=== PATIENT | male | born 1950 | race Caucasian/White ===

== ENCOUNTER → 2019-02-20 15:57 | Outpatient (CLI) | payer OTHER, SELFPAY ==
[2019-02-20 17:09] LABS: Aspartate Aminotransferase 30 IU/L (17-59); BUN Creatinine Ratio 25.6 (6-22); Blood Urea Nitrogen 23 mg/dL (9-20); Calcium 9.3 mg/dL (8.4-10.2); Carbon Dioxide 23 mmol/L (22-32); Chloride 104 mmol/L (98-107); Cholesterol 138 mg/dL (140-199); Estimated Glomerular Filt Rate > 60.0 mL/min (>60); Glucose 95 mg/dL (80-110); HDL Cholesterol 58 mg/dL (40-60); HEMOLYSIS < 15 (0-50); LDL Cholesterol Calculated 24 mg/dL (<100); Potassium 4.8 mmol/L (3.4-5.1); Sodium 139 mmol/L (137-145); Triglycerides 280 mg/dL (35-150)
[2019-02-20 17:39] LABS: Prostate Specific Antigen 2.04 ng/mL (0.10-4.00)
== END ==
PROVIDERS: PCP Internal Medicine; Visit Provider Internal Medicine
DX: M10.9 Gout, unspecified (principal); I10 Essential (primary) hypertension; N40.0 Benign prostatic hyperplasia without lower urinary tract symptoms; E78.2 Mixed hyperlipidemia
CPT/HCPCS: 36415; 80048; 80061; 84153; 84450

== ENCOUNTER 2019-05-10 11:38 | Emergency (ER) | payer OTHER, SELFPAY ==
[2019-05-10 11:39] VITALS: BP 165/103; PULSE 82; RESP 22; TEMP 36.6; O2SAT 99; BMI 44.6
--- NOTE | 2019-05-10 11:48 | PC.NURSE ---
Pt states on thanksgiving he was trying to get down on his knees, and he has a bad knee so he placed all his weight onto his L wrist. appears swollen and pt is c/o increased pain. 2+ pulse. pain radiates into elbow.
--- NOTE | 2019-05-10 11:49 | DI.RAD.S_ITS ---
PROCEDURE: XR HAND LT MIN 3V INDICATIONS: pain sp foosh TECHNIQUE: 3 views of the hand(s) acquired. COMPARISON: None. 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 No acute fracture or dislocation. There is interphalangeal joint space narrowing. Non-unified, chronic appearing fractures versus accessory ossicles are noted at the posterior radiocarpal joint. Soft tissues: No suspicious soft tissue calcifications. IMPRESSION: Degenerative change. No acute radiographic findings. If pain persists, followup imaging in 5-7 days is recommended to exclude occult fracture. Dictated by: Ana Frey M.D. on 05/10/2019 at 11:40 Approved by: Ana Frey M.D. on 05/10/2019 at 11:41
--- NOTE | 2019-05-10 11:49 | DI.RAD.S_ITS ---
PROCEDURE: XR WRIST LT MIN 3V INDICATIONS: pain sp FOOSH TECHNIQUE: 4 views of the wrist were acquired. COMPARISON: None. FINDINGS: Bones: No acute fracture or dislocation. Severe degenerative changes are present at the triscaphe joint. Corticated bone fragments are present at the posterior radiocarpal joint suggesting prior non-unified fractures or accessory ossicles. Scaphoid view: The scaphoid is intact. Soft tissues: No suspicious soft tissue calcifications. IMPRESSION: Degenerative changes. No acute radiographic findings. If pain persists, followup imaging in 5-7 days is recommended to exclude occult fracture. Dictated by: Ana Frey M.D. on 05/10/2019 at 11:38 Approved by: Ana Frey M.D. on 05/10/2019 at 11:40
--- NOTE | 2019-05-10 11:57 | ED.UPPEXIN ---
HPI - Extremity Injury (Upper) <IBETH Harrison - Last Filed: 05/10/19 14:05> General Chief Complaint: Extremity Injury, Upper Stated Complaint: WRIST INJURY Time Seen by Provider: 05/10/19 11:40 Source: patient Mode of arrival: Ambulatory Limitations: no limitations History of Present Illness HPI narrative: The patient is a 68-year-old male nonsmoker who drinks 6 beers a day in the evenings who presents with a chief complaint of left wrist pain. He states that he was using his hand in an outstretched position to support his weight while getting on the ground and felt something twinge or too weak. He took Vicodin for the pain last night. He has not applied ice. Yesterday started noticed swelling in the area. He denies any previous injuries to the wrist. He states he has a reduced range of motion over his wrist and hand. He denies any abrasions or lacerations. Related Data Home Medications Medication Instructions Recorded Confirmed ALLOPURINOL 0 PO *UK DOSE/FREQUENCY #0 12/30/07 Allergies Allergy/AdvReac Type Severity Reaction Status Date / Time No Known Drug Allergies Allergy Verified 05/10/19 11:50 Review of Systems <IBETH Harrison - Last Filed: 05/10/19 14:05> Review of Systems Narrative: GENERAL: Denies chills, fatigue, malaise, fever, sweats. HEENT: Denies sinus pain, ear pain, sore throat, difficulty swallowing, dizziness. RESPIRATORY: Denies dyspnea, cough, wheezing, hemoptysis, sputum. CARDIOVASCULAR: Denies chest pain, palpitations, orthopnea, edema, GASTROINTESTINAL: Denies nausea, vomiting, abdominal pain, diarrhea, constipation, melena. : Denies dysuria, frequency, incontinence, hematuria, urinary retention. MUSCULOSKELETAL: See HPI SKIN: Denies rash, skin lesions, or other NEUROLOGIC: Denies weakness, headache, numbness, change in speech, confusion, seizures, incoordination. PSYCHIATRIC: No concerning psychosocial issues. 12 point review of systems is negative except for those stated above Patient History <GRETA Harrison - Last Filed: 05/10/19 14:05> Social History Smoking Status: Never smoker alcohol intake frequency: 3 or more drinks per day Alcohol type: beer Substance Use Type: marijuana Exam <GRETA Harrison - Last Filed: 05/10/19 14:05> Narrative Exam Narrative: GENERAL: This is a well-nourished, well-developed patient, in no acute distress HEAD: Atraumatic. Normocephalic. No temporal or scalp tenderness. EYES: Pupils equal round and reactive. Extraocular motions intact. No scleral icterus. No injection or drainage. ENT: Nose without bleeding, purulent drainage or septal hematoma. Throat without erythema, tonsillar hypertrophy or exudate. Uvula midline. Airway patent. NECK: Trachea midline. No JVD or lymphadenopathy. Supple, nontender, no meningeal signs. CARDIOVASCULAR: Regular rate and rhythm RESPIRATORY: No cough. No increased respiratory effort. No accessory muscle use. EXTREMITIES: General pain to palpation noted left wrist and hand. Decreased range of motion left wrist flexion and extension. Swelling noted. Patient has decreased range of motion left hand, unable to make fist due to pain in wrist. No snuffbox tenderness to palpation. BACK: Nontender without deformity or crepitance. No flank tenderness. NEURO: AOx3. Interactive. Stable gait. SKIN: No rash or erythema on visible skin. No erythema or warmth laceration or abrasion noted left wrist. Initial Vital Signs Initial Vital Signs: Vital Signs Temperature 97.8 F 05/10/19 11:39 Pulse Rate 82 05/10/19 11:39 Respiratory Rate 22 05/10/19 11:39 Blood Pressure 165/103 H 05/10/19 11:39 Pulse Oximetry 99 05/10/19 11:39 <Amanda Jon DO - Last Filed: 05/10/19 18:47> Initial Vital Signs Initial Vital Signs: Vital Signs Temperature 97.8 F 05/10/19 11:39 Pulse Rate 82 05/10/19 11:39 Respiratory Rate 22 05/10/19 11:39 Blood Pressure 165/103 H 05/10/19 11:39 Pulse Oximetry 99 05/10/19 11:39 Course <GRETA Harrison - Last Filed: 05/10/19 14:05> Orders Ordered: ED Orders 05/10/19 11:49 XR hand LT min 3V Stat XR wrist LT min 3V Stat Vital Signs Vital signs: Vital Signs - 8 hr 05/10/19 11:39 Temperature 97.8 F Pulse Rate 82 Respiratory Rate 22 Blood Pressure 165/103 H Pulse Oximetry 99 <Amanda Jon DO - Last Filed: 05/10/19 18:47> Orders Ordered: ED Orders 05/10/19 11:49 XR hand LT min 3V Stat XR wrist LT min 3V Stat Vital Signs Vital signs: Vital Signs - 8 hr 05/10/19 11:39 Temperature 97.8 F Pulse Rate 82 Respiratory Rate 22 Blood Pressure 165/103 H Pulse Oximetry 99 MDM - Extremity Injury (Upper) <GRETA Harrison - Last Filed: 05/10/19 14:05> Imaging Data Wrist x-ray: Radiologist's impression: [address] [address] XRay Report Signed Patient: All Hathaway GMR#: [id number] : 1950cct:[id number] Age/Sex: 68 / MDate of Service: 05/10/19 Loc: ED Accession Number: [id number] Procedure: XR wrist LT min 3V Ordering Provider: Dayana Torres PROCEDURE: XR WRIST LT MIN 3V INDICATIONS: pain sp FOOSH TECHNIQUE: 4 views of the wrist were acquired. COMPARISON: None. FINDINGS: Bones: No acute fracture or dislocation. Severe degenerative changes are present at the triscaphe joint. Corticated bone fragments are present at the posterior radiocarpal joint suggesting prior non-unified fractures or accessory ossicles. Scaphoid view: The scaphoid is intact. Soft tissues: No suspicious soft tissue calcifications. IMPRESSION: Degenerative changes. No acute radiographic findings. If pain persists, followup imaging in 5-7 days is recommended to exclude occult fracture. Dictated by: Ana Frey M.D. on 05/10/2019 at 11:38 Approved by: Ana Frey M.D. on 05/10/2019 at 11:40 Hand x-ray: Radiologist's impression: All Hathaway Janell 68 M [address] [address] XRay Report Signed Patient: All Hathaway GMR#: [id number] : 3Acct:[id number] Age/Sex: 68 / MDate of Service: 05/10/19 Loc: ED Accession Number: [id number] Procedure: XR hand LT min 3V Ordering Provider: Dayana Torres PROCEDURE: XR HAND LT MIN 3V INDICATIONS: pain sp foosh TECHNIQUE: 3 views of the hand(s) acquired. COMPARISON: None. 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 No acute fracture or dislocation. There is interphalangeal joint space narrowing. Non-unified, chronic appearing fractures versus accessory ossicles are noted at the posterior radiocarpal joint. Soft tissues: No suspicious soft tissue calcifications. IMPRESSION: Degenerative change. No acute radiographic findings. If pain persists, followup imaging in 5-7 days is recommended to exclude occult fracture. Dictated by: Ana Frey M.D. on 05/10/2019 at 11:40 Approved by: Ana Frey M.D. on 05/10/2019 at 11:41 MDM Narrative Medical decision making narrative: The patient is a 68-year-old male who presents with a chief complaint of wrist pain after twisting and setting himself down on his rest on . He states it has been worsening. X-ray showed no acute fracture. He does have history of gout, but there is no erythema or warmth and there is an impetus injury. We discussed the possibility of DVT, but there is no erythema, warmth and there is an impetus and drained making it less likely. Encouraged rest ice compression elevation as well as [id number] pain medications as needed and able. I am hesitant to do narcotic prescription for the patient as he drinks a 6 pack of beer every night. Discussed monitoring for signs and symptoms of infection such as redness, fever and come back to emergency department for any acute concerns such as chest pain and shortness of breath. Encouraged follow-up with primary care provider. Patient has no questions or concerns upon discharge and states understanding of return precautions as well as follow-up care. Discharge Plan Departure Patient Disposition: Home Clinical Impression: Sprain and strain of wrist Acute wrist pain Qualifiers: Laterality: left Qualified Code(s): M25.532 - Pain in left wrist Discharge Date/Time: 05/10/19 13:10 Instructions: DI for Wrist Sprain, How To Perform RICE (Rest, Ice, Compress, Elevate), DI for Wrist Pain Activity Restrictions/Additional Instructions: As I discussed, your x-ray shows no acute fracture. This does not rule out a soft tissue injury such as a ligament or tendon injury. It is important that you follow up with primary care provider, especially if worsening or no improvement. There can be fractures that did not show up on initial x-ray. Please use rest ice compression elevation as well as [id number] pain medications as needed and able. Please follow up with primary care provider in the next few days. Please come back to the emergency department for any acute concerns such as chest pain, shortness of breath, and inability to keep down fluids Prescriptions: No Action ALLOPURINOL 0 PO *UK DOSE/FREQUENCY Qty: 0 RF: 0 Referrals: Bolivar Varela MD [Primary Care Provider] -
== END 2019-05-10 13:10 | disposition home or self-care (01) ==
PROVIDERS: Emergency Provider Nurse Practitioner Family; PCP Internal Medicine
DX: S63.502A Unspecified sprain of left wrist, initial encounter (principal); S66.912A Strain of unspecified muscle, fascia and tendon at wrist and hand level, left hand, initial encounter; M25.532 Pain in left wrist
CPT/HCPCS: 73110; 73130; 99282; 99283

== ENCOUNTER → 2019-07-04 14:25 | Outpatient (CLI) | payer OTHER, SELFPAY ==
--- NOTE | 2019-07-04 | DI.MRI.S_ITS ---
PROCEDURE: MR WRIST LT WO CON INDICATIONS: Pain in left wrist TECHNIQUE: Noncontrast coronal proton density fast spin echo and T2 fast spin echo with fat saturation; coronal 3-D gradient echo, axial T1 spin echo and T2 fast spin echo with fat saturation, sagittal T1 spin echo through the wrist. COMPARISON: [facility], CR, XR WRIST LT MIN 3V, 05/10/2019, 12:12. FINDINGS: Image quality: Excellent. Bones and cartilage: The carpal bones are normally aligned. No bone marrow contusions or fractures. No evidence for avascular necrosis. There are subtle sub-5 mm marrow signal changes on T1 weighted images involving the triquetral, scaphoid, hamate and lunate which statistically represent small degenerative cysts although cannot entirely exclude early erosions Carpal ligaments: Thickened appearance of the ulnotriquetral ligament, and ulnar joint capsule, with T2 hyperintensity suggestive of sprain. The scapholunate ligament not well seen although no definite scapholunate interval widening. The lunotriquetral ligament appears grossly intact. In the absence of intra-articular contrast, the extrinsic carpal ligaments are not well identified. On sagittal images, the pisohamate ligament appears intact. Triangular fibrocartilage complex: Intrasubstance signal changes and irregularity involving the central disc and radial attachment of the TFCC suggesting program probably chronic) tear. There is ulnocarpal and radiocarpal diffuse partial thickness chondral loss. The adjacent meniscal homolog not well seen, with frayed appearance. The extensor carpi ulnaris tendon is normal in location and morphology. Tendons and soft tissues: The carpal tunnel structures appear normal, including the median nerve. The ulnar nerve appears normal within Guyon's canal. All six extensor tendon compartments demonstrate normal morphology, without pathologic tendon sheath fluid. No soft tissue ganglion cysts. 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 This finding technically age-indeterminate. Scapholunate ligament not well visualized and possibly ruptured, although no definite scapholunate interval widening. Dictated by: Olayinka Lazo M.D. on 07/06/2019 at 10:12 Approved by: Olayinka Lazo M.D. on 07/06/2019 at 10:26
== END ==
PROVIDERS: PCP Internal Medicine; Visit Provider Internal Medicine
DX: S63.592A Other specified sprain of left wrist, initial encounter (principal); M25.532 Pain in left wrist
CPT/HCPCS: 73221

== ENCOUNTER → 2020-03-02 18:26 | Outpatient (ROUT) | payer OTHER, SELFPAY ==
[2020-03-02 18:58] LABS: Hematocrit 37.6 % (41-53); Hemoglobin 12.8 g/dL (13.5-17.5); Mean Corpuscular HGB Conc 33.9 % (30-36); Mean Corpuscular Hemoglobin 35.5 PG (26-34); Mean Corpuscular Volume 104.6 fL (80-100); Platelet Count 313 X10^3/uL (150-400); White Blood Cell Count 7.5 X10^3/uL (4.5-11.0)
[2020-03-02 19:20] LABS: Alanine Aminotransferase 28 IU/L (<50); Albumin 3.4 g/dL (3.5-5.0); Albumin Globulin Ratio 1.1 (1.0-2.8); Alkaline Phosphatase 75 U/L (38-126); Aspartate Aminotransferase 44 IU/L (17-59); BUN Creatinine Ratio 19.8 (6-22); Bilirubin Total 0.6 mg/dL (0.2-1.3); Blood Urea Nitrogen 22 mg/dL (9-20); Calcium 8.3 mg/dL (8.4-10.2); Carbon Dioxide 24 mmol/L (22-32); Chloride 103 mmol/L (98-107); Cholesterol 98 mg/dL (140-199); Estimated Glomerular Filt Rate > 60.0 mL/min (>60); Globulin 3.1 g/dL (1.7-4.1); Glucose 97 mg/dL (80-110); HDL Cholesterol 60 mg/dL (40-60); HEMOLYSIS < 15 (0-50); LDL Cholesterol Calculated 8 mg/dL (<100); Potassium 4.3 mmol/L (3.4-5.1); Sodium 135 mmol/L (137-145); Total Protein 6.5 g/dL (6.3-8.2); Triglycerides 148 mg/dL (35-150)
[2020-03-02 19:51] LABS: TSH w/ Reflex to FT4 1.78 uIU/mL (0.47-4.68)
== END ==
PROVIDERS: PCP Internal Medicine; Visit Provider Internal Medicine
DX: I10 Essential (primary) hypertension (principal); E78.2 Mixed hyperlipidemia; N40.0 Benign prostatic hyperplasia without lower urinary tract symptoms
CPT/HCPCS: 80053; 80061; 84153; 84443; 85027

== ENCOUNTER → 2020-05-20 19:25 | Outpatient (ROUT) | payer OTHER, SELFPAY ==
[2020-05-20 19:42] LABS: Add Manual Diff / Slide Review NO; Basophils Absolute Auto 100 /uL (0-100); Basophils Percent Auto 0.8 % (0-2); Eosinophils Absolute Auto 200 /uL (0-450); Eosinophils Percent Auto 2.4 % (2-4); Hematocrit 37.9 % (41-53); Hemoglobin 12.8 g/dL (13.5-17.5); Lymphocytes Absolute Auto 1400 /uL (1100-4500); Lymphocytes Percent Auto 17.6 % (25-40); Mean Corpuscular HGB Conc 33.8 % (30-36); Mean Corpuscular Hemoglobin 32.9 PG (26-34); Mean Corpuscular Volume 97.2 fL (80-100); Monocytes Absolute Auto 600 /uL (0-900); Monocytes Percent Auto 7.1 % (3-14); Neutrophils Absolute Auto 5800 /uL (1500-7000); Neutrophils Percent Auto 72.1 % (50-75); Platelet Count 446 X10^3/uL (150-400); Red Cell Distribution Width 13.1 % (11.6-14.8)
[2020-05-20 19:49] LABS: BUN Creatinine Ratio 18.6 (6-22); Blood Urea Nitrogen 18 mg/dL (9-20); Calcium 9.2 mg/dL (8.4-10.2); Carbon Dioxide 30 mmol/L (22-32); Chloride 101 mmol/L (98-107); Estimated Glomerular Filt Rate > 60.0 mL/min (>60); Glucose 109 mg/dL (80-110); HEMOLYSIS < 15 (0-50); Sodium 136 mmol/L (137-145)
== END ==
PROVIDERS: PCP Internal Medicine; Visit Provider Internal Medicine
DX: M10.9 Gout, unspecified (principal)
CPT/HCPCS: 80048; 84550; 85025

== ENCOUNTER → 2021-03-03 13:12 | Outpatient (CLI) | payer OTHER, SELFPAY ==
[2021-03-03 14:47] LABS: Uric Acid 5.5 mg/dL (3.5-8.5)
[2021-03-03 15:32] LABS: Aspartate Aminotransferase 22 IU/L (17-59); BUN Creatinine Ratio 20.9 (6-22); Blood Urea Nitrogen 19 mg/dL (9-20); Calcium 9.6 mg/dL (8.4-10.2); Carbon Dioxide 27 mmol/L (22-32); Chloride 104 mmol/L (98-107); Cholesterol 145 mg/dL (140-199); Estimated Glomerular Filt Rate > 60.0 mL/min (>60); Glucose 165 mg/dL (80-110); HDL Cholesterol 50 mg/dL (40-60); HEMOLYSIS < 15 (0-50); LDL Cholesterol Calculated 62 mg/dL (<100); Potassium 4.6 mmol/L (3.4-5.1); Sodium 138 mmol/L (137-145); Triglycerides 164 mg/dL (35-150)
[2021-03-06 16:48] LABS: Hep C Virus Ab w/Reflex Quant NEGATIVE s/c (NEGATIVE)
== END ==
PROVIDERS: PCP Internal Medicine; Referring Provider Internal Medicine; Visit Provider Internal Medicine
DX: Z11.59 Encounter for screening for other viral diseases (principal); N40.0 Benign prostatic hyperplasia without lower urinary tract symptoms; M1A.9XX0 Chronic gout, unspecified, without tophus (tophi); E78.2 Mixed hyperlipidemia; I10 Essential (primary) hypertension
CPT/HCPCS: 36415; 80048; 80061; 84153; 84450; 84550; 86803

== ENCOUNTER → 2021-06-20 13:13 | Outpatient (CLI) | payer OTHER, SELFPAY ==
[2021-06-20 16:34] LABS: Prostate Specific Antigen 2.25 ng/mL (0.10-4.00)
== END ==
PROVIDERS: PCP Internal Medicine; Referring Provider Internal Medicine; Visit Provider Internal Medicine
DX: N40.0 Benign prostatic hyperplasia without lower urinary tract symptoms (principal); Z12.5 Encounter for screening for malignant neoplasm of prostate
CPT/HCPCS: 36415; 84153